=== PATIENT | female | born 1995 | race Caucasian/White ===

== ENCOUNTER 2019-10-15 11:33 | Outpatient (CLI) | payer SELFPAY ==
--- NOTE | 2019-10-15 11:46 | XR_ITS ---
WS: [id number] Lumbar spine with flexion, extension, and neutral lateral, 10/15/2019 Clinical Data: INTERVERTEBRAL DISC DISPLACEMENT-LUMBAR REGION Comparison: None. Findings: No compression fractures or subluxation is seen. No disc space narrowing is seen. No limitation of motion or subluxation is seen. There is an incidental unfused apophysis at the anterior inferior aspect of the L3 vertebral body. XR/XR lumbar spine f/e only [id number] Impression: Negative lateral lumbar spine.
== END 2019-10-15 11:34 | disposition home or self-care (01) ==
LOC: RAD 11:39
PROVIDERS: Family Provider Nurse Practitioner Family; PCP Nurse Practitioner Family; Visit Provider Nurse Practitioner Family
DX: M51.26 Other intervertebral disc displacement, lumbar region (principal)
CPT/HCPCS: 72120

== ENCOUNTER 2019-10-23 09:06 | Outpatient (CLI) | payer SELFPAY ==
--- NOTE | 2019-10-23 09:00 | XRR_ITS ---
PROCEDURE INFORMATION: Exam: XR Abdomen, 1 View Exam date and time: 10/23/2019 9:14 AM Age: 23 years old Clinical indication: Abdominal pain; Additional info: Kidney stone TECHNIQUE: Imaging protocol: XR of the abdomen. Views: Frontal supine view of the abdomen. 1 View. COMPARISON: CT Abdomen/Pelvis Renal [id number] 09/28/2019 8:41 AM FINDINGS: Gastrointestinal tract: The bowel gas pattern is nonspecific. Air filled large bowel including distal rectal gas. Organs: 4 mm calcification overlies the upper pole of the right kidney. Bones/joints: Unremarkable. XR/XR KUB [id number] IMPRESSION: 1. The bowel gas pattern is nonspecific. Air filled large bowel including distal rectal gas. 2. 4 mm calcification overlies the upper pole of the right kidney.
== END 2019-10-23 09:07 | disposition home or self-care (01) ==
LOC: RAD 09:10
PROVIDERS: Family Provider Nurse Practitioner Family; PCP Nurse Practitioner Family; Visit Provider Urology
DX: N20.0 Calculus of kidney (principal)
CPT/HCPCS: 74018; 81001

== ENCOUNTER 2019-11-02 11:26 | Outpatient (CLI) | payer SELFPAY ==
--- NOTE | 2019-11-02 11:38 | MR_ITS ---
WS: [id number] MRI LUMBAR SPINE NONCONTRAST HISTORY: INTERVERTEBRAL DISC DISPLACEMENT, LUMBAR REGION COMPARISON: Prior CT 09/28/2019. TECHNIQUE: Sagittal and axial multisequence imaging is submitted. As seen on a prior CT examination there are 5 nonrib-bearing lumbar vertebral bodies. This numbering pattern will be utilized today. There may only be 11th thoracic type vertebral bodies. Numbering pattern of 5 nonrib-bearing lumbar vertebral bodies utilized. Normal posterior lumbar alignment. There are small Schmorl's nodes from T12 through L4. Again noted i s the unfused apophysis along the inferior anterior endplate of L3. No marrow edema or fracture. Conus terminates normally at mid L2. L1-L2: Normal. L2-L3: Normal. L3-L4: Small amount of fluid in the facet joints. No stenosis. L4-L5: Small central disc protrusion with mild contact on the ventral thecal sac. No displacement of the nerve roots. Very minimal narrowing of the subarticular recesses. No foraminal or central stenosi s. Small amount of fluid in the facet joints. L5-S1: Moderate-sized central disc protrusion extends cephalad to the disc space. Disc extrusion exte nds over length of 9.4 mm and transversely by 7.4 mm. Very slight encroachment and narrowing of the L EFT subarticular recess. There is still a small amount of CSF surrounding the nerve roots. Visualized retroperitoneum is negative. MR/MR lumbar spine wo con* [id number] IMPRESSION: 1. Moderate-sized central and LEFT paracentral disc extrusion at L5-S1. Minima l encroachment upon the subarticular recesses and proximal LEFT foramen. 2. Small central disc protrusion at L4-5 without stenosis.
--- NOTE | 2019-11-02 13:00 | XR_ITS ---
WS: [id number] LATERAL LUMBAR SPINE: 3 view. Lateral radiographs are performed in upright neutral, flexion and extension to the patient's toleranc e. HISTORY: herniated disc COMPARISON: 10/15/2019 Unfused apophysis along the inferior anterior L3 endplate is similar to the prior study. Very minimal anterior wedging of the L3 vertebral body. No fractures are identified. Posterior alignment is kolton l. With flexion and extension no instability is identified. XR/XR lumbar spine f/e only [id number] IMPRESSION: 1. No lumbar spine instability. 2. L3 unfused apophysis.
== END 2019-11-02 11:27 | disposition home or self-care (01) ==
PROVIDERS: Family Provider Nurse Practitioner Family; PCP Nurse Practitioner Family; Visit Provider Nurse Practitioner Family
DX: M51.26 Other intervertebral disc displacement, lumbar region (principal); M48.061 Spinal stenosis, lumbar region without neurogenic claudication
CPT/HCPCS: 72120; 72148

== ENCOUNTER 2020-06-05 12:47 | Outpatient (CLI) | payer SELFPAY ==
--- NOTE | 2020-06-05 12:45 | XR_ITS ---
WS: [id number] KUB, 06/05/2020 Clinical Data: stones Comparison: KUB, 10/23/2019. Findings: There is a 0.4 cm calcification overlying the midportion of the right kidney. No abnormal intraabdominal masses are seen. There is no dilatated small bowel or evidence of obstruct ion. There is a large amount of fecal material throughout the colon. XR/XR KUB [id number] Impression: No change in 0.4 cm calcification overlying the right kidney.
== END 2020-06-05 12:48 | disposition home or self-care (01) ==
LOC: RAD 12:49
PROVIDERS: PCP Nurse Practitioner Family; Visit Provider Nurse Practitioner Family
DX: N20.0 Calculus of kidney (principal)
CPT/HCPCS: 74018; 81001

== ENCOUNTER → 2021-01-26 11:51 | Outpatient (BNVA) | payer BC, SELFPAY | PROVIDERS: PCP Nurse Practitioner Family; Visit Provider Family Medicine | DX: E11.65 Type 2 diabetes mellitus with hyperglycemia (principal) | CPT/HCPCS: 83036; 84443 ==

== ENCOUNTER 2022-03-30 08:21 | Outpatient (CLI) | payer BC, SELFPAY ==
--- NOTE | 2022-03-30 08:45 | US_ITS ---
WS: [id number] ULTRASOUND RIGHT BREAST, limited HISTORY: Mastodynia; pain AND SKIN DIMPLING COMPARISON: 07/16/2015 TECHNIQUE: 2-D and Doppler. Ultrasound performed in the area of concern as indicated by the patient from 7-12 o'clock and towards the axillary tail. No masses or shadowing identified. No skin thickening or distortion. Benign lymph nodes towards the a xillary tail. US/US breast RT limited* [id number] IMPRESSION: BI-RADS: 1-Negative FOLLOW-UP: See Report No abnormality limited RIGHT breast ultrasound identified.
== END 2022-03-30 08:22 | disposition home or self-care (01) ==
LOC: RAD 08:22
PROVIDERS: PCP Nurse Practitioner; Visit Provider Nurse Practitioner
DX: N64.4 Mastodynia (principal)
CPT/HCPCS: 76642

== ENCOUNTER 2022-11-24 08:56 | Day surgery (SDC) | payer BC, MEDICAID, SELFPAY ==
[2022-11-22 10:03] VITALS: BMI 34.3
[2022-11-24 09:14] VITALS: BP 114/70; PULSE 60; RESP 18; TEMP 36.1; O2SAT 96
[2022-11-24] MEDS: sodium chloride 0.9% 1,000 ML 30 ML IV (09:21)
[2022-11-24 09:26] LABS: OR HCG Qualitative Urine Negative (Negative)
--- NOTE | 2022-11-24 09:27 | ANES.PREANE2 ---
Pre-Anesthetic Assessment Height/Weight: Height 1.5 m Weight 77.111 kg Temp Pulse Resp BP Pulse Ox O2 Del Method 97 F L 60 18 114/70 96 11/24/22 09:14 11/24/22 09:14 11/24/22 09:14 11/24/22 09:14 11/24/22 09:14 11/24/22 09:14 Preop Diagnosis: GERD Operation Date: 11/24/22 10:30 Proposed Procedures p [id number] egd, R10.9(Not Applicable) - Germain Anderson DO Familial anesthetic complications: none Was Beta Orlando taken within 24 hours: N/A Was Clonidine taken within 24 hours: N/A Last intake: Intake Last Liquid Date 11/23/22 Last Liquid Time 22:30 Last Solid Date 11/23/22 Last Solid Time 18:00 Last Intake: 22:30 Social No alcohol and No tobacco Exam alert, oriented x 3, clear to auscultation bilaterally and regular rate & rhythm Airway Submandibular: within normal limits Cervical ROM: within normal limits Mallampati: Class I Dentition: full Pulmonary None reported CV/HEM None reported None reported Hepatic None reported GI Gastroesophageal Reflux Disease Metabolic None reported Musc/skel Lower Back Pain Neuropsych None reported Anesthetic Plan ASA status: 1 Anesthesia: MAC Medications/Allergies Home Medications Medication Instructions Recorded Confirmed Last Taken Type omeprazole 20 mg capsule,delayed 20 mg PO DAILY 11/11/22 11/22/22 11/23/22 History release Allergies Allergy/AdvReac Type Severity Reaction Status Date / Time No Known Allergies Allergy Verified 11/11/22 13:49 Current Medications Generic Name Dose Route Start Last Admin Trade Name Freq PRN Reason Stop Dose Admin Sodium Chloride 1,000 mls @ 30 mls/hr 11/23/22 14:30 11/24/22 09:21 Sodium Chloride 0.9% IV 11/24/22 14:29 30 mls/hr .Q24H SHARON Administration PFSH Anesthesia Medical History Dental infection Displacement of lumbar intervertebral disc Otitis media Right renal stone Surgical History S/P section Status post ovarian cystectomy Family History Grandmother Diabetes Breast cancer Bone cancer Grandfather Pancreatic cancer Social History Smoking and tobacco status: never smoked Alcohol intake: never Household members: spouse and children Marital status: Current occupational status: unemployed 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
--- NOTE | 2022-11-24 11:02 | W.PM.OPSUD ---
Surgery/Procedure H&P Update DATE OF PROCEDURE: November 24, 2022 DATE H&P PERFORMED: 11/11/22 H&P UPDATE INFORMATION: I have reviewed H&P completed within last 30 days, I have examined patient prior to procedure and No changes to prior documentation PREOP DIAGNOSIS: GERD PLANNED PROCEDURE: Operation Date: 11/24/22 10:30 Proposed Procedures p [id number] egd, R10.9(Not Applicable) - Germain Anderson, DO
[2022-11-24 11:30] VITALS: BP 99/60; PULSE 67; RESP 16; TEMP 36.3; O2SAT 98
[2022-11-24 11:40] VITALS: BP 99/62; PULSE 63; RESP 16; O2SAT 98
--- NOTE | 2022-11-24 13:58 | ANE.PACU2 ---
Inpatient post-anesthesia follow up: Airway intact: Yes Vital signs: Temperature 97.4 F Pulse Rate 63 Respiratory Rate 16 Blood Pressure 99/62 Pulse Oximetry 98 Oxygen Delivery Me thod Room Air Oxygen Flow Rate 2 Fraction of Inspir ed Oxygen Hydration adequate: Yes Nausea and vomiting: No Pain level: 1 Mental status: Baseline
== END 2022-11-24 12:04 | disposition home or self-care (01) ==
PROVIDERS: Anesthesiology; Visit Provider Surgery
PROC: 0DJ08ZZ Inspection of Upper Intestinal Tract, Via Natural or Artificial Opening Endoscopic (ICD-10-PCS; CPT 43235; principal; 2022-11-24 10:30)
DX: K21.9 Gastro-esophageal reflux disease without esophagitis (principal)
CPT/HCPCS: 43239; 81025; 84703; 88305; J2704; J7030

== ENCOUNTER 2022-12-02 09:57 | Outpatient (CLI) | payer BC, MEDICAID, SELFPAY ==
--- NOTE | 2022-12-02 10:00 | NM_ITS ---
WS: [id number] NUCLEAR MEDICINE HIDA SCAN CLINICAL INFORMATION: abdominal pain TECHNIQUE: Following intravenous administration of 7.4 mCi of technetium 99m mebrofenin, images of th e abdomen were obtained over the course of 60 minutes. Next, gallbladder ejection fraction was determ ined by obtaining preprandial and one-hour postprandial images of the gallbladder following oral yamilet stion of Ensure. COMPARISON: None. FINDINGS: Normal hepatic uptake at 5 minutes. Normal hepatic excretion. Gallbladder is visualized by 30 minutes . No evidence of acute cholecystitis. Gallbladder ejection fraction 80% within normal limits. No evidence of chronic cholecystitis. Normal common bile duct and small bowel activity. NM/NM hepatobiliary w phar* [id number] IMPRESSION: 1. No evidence of acute cholecystitis. 2. Gallbladder ejection fraction 80% within normal limits. No evidence of general internal medicine physician viridiana cholecystitis.
== END 2022-12-02 09:58 | disposition home or self-care (01) ==
LOC: RAD 09:59
PROVIDERS: PCP Nurse Practitioner Family; Visit Provider Surgery
DX: R10.9 Unspecified abdominal pain (principal)
CPT/HCPCS: 78227; A9537

== ENCOUNTER 2023-01-06 05:29 | Day surgery (SDC) | payer BC, MEDICAID, SELFPAY ==
[2023-01-05 12:45] VITALS: BMI 33.3
[2023-01-06] VITALS (12 sets, daily range): BP systolic 104–130; BP diastolic 53–77; PULSE 53–77; RESP 16–21; TEMP 36.3–36.7; O2SAT 97–100
[2023-01-06 06:01] LABS: OR HCG Qualitative Urine Negative (Negative)
[2023-01-06] MEDS: sodium chloride 0.9% 1,000 ML 30 ML IV ×2 (06:15→09:21)
--- NOTE | 2023-01-06 06:58 | ANES.PREANE2 ---
Pre-Anesthetic Assessment Height/Weight: Height 1.5 m Weight 74.843 kg Temp Pulse Resp BP Pulse Ox O2 Del Method 97.9 F 53 L 16 114/68 99 01/06/23 05:55 01/06/23 05:55 01/06/23 05:55 01/06/23 05:55 01/06/23 05:55 01/06/23 05:55 Preop Diagnosis: Right upper quadrant syndrome Operation Date: 01/06/23 07:00 Proposed Procedures p lap yvonne [id number], k82.8(Not Applicable) - Germain Anderson DO Familial anesthetic complications: None Was Beta Orlando taken within 24 hours: N/A Was Clonidine taken within 24 hours: N/A Last intake: Intake Last Liquid Date 01/05/23 Last Liquid Time 20:00 Last Solid Date 01/05/23 Last Solid Time 18:30 Social No alcohol and No tobacco Exam alert, oriented x 3, clear to auscultation bilaterally and regular rate & rhythm Airway Mallampati: Class I Dentition: full GI Gastroesophageal Reflux Disease Anesthetic Plan ASA status: 2 Anesthesia: General Risk of > 500 ml blood loss (7ml/kg in children): No Medications/Allergies Home Medications Medication Instructions Recorded Confirmed Last Taken Type omeprazole 20 mg capsule,delayed 20 mg PO DAILY 11/11/22 01/06/23 01/05/23 History release Allergies Allergy/AdvReac Type Severity Reaction Status Date / Time No Known Allergies Allergy Verified 01/06/23 06:17 Current Medications Generic Name Dose Route Start Last Admin Trade Name Freq PRN Reason Stop Dose Admin Sodium Chloride 1,000 mls @ 30 mls/hr 01/06/23 05:45 01/06/23 06:15 Sodium Chloride 0.9% IV 01/07/23 05:44 30 mls/hr .Q24H SHARON Administration PFSH Anesthesia Medical History Dental infection Displacement of lumbar intervertebral disc Otitis media Right renal stone Surgical History S/P section Status post ovarian cystectomy Family History Grandmother Diabetes Breast cancer Bone cancer Grandfather Pancreatic cancer Social History Smoking and tobacco status: never smoked Alcohol intake: never Household members: spouse and children Marital status: Current occupational status: unemployed 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
--- NOTE | 2023-01-06 07:32 | W.PM.OPSUD ---
Surgery/Procedure H&P Update DATE OF PROCEDURE: January 06, 2023 DATE H&P PERFORMED: 12/07/22 H&P UPDATE INFORMATION: I have reviewed H&P completed within last 30 days, I have examined patient prior to procedure and No changes to prior documentation PREOP DIAGNOSIS: Right upper quadrant syndrome PLANNED PROCEDURE: Operation Date: 01/06/23 07:00 Proposed Procedures p lap yvonne [id number], k82.8(Not Applicable) - Germain Anderson DO
[2023-01-06] MEDS: ceFAZolin 2,000 MG in sodium chloride 0.9% (plus) 50 ML 100 MG IV (07:38)
[2023-01-06] MEDS: lidocaine-epi 2% 20 mL INJ INJECTION (08:07)
--- NOTE | 2023-01-06 08:21 | P.OP_ITS ---
Operative Report Date of procedure: January 06, 2023 Pre-op diagnosis: Preop Diagnosis Right upper quadrant syndrome Post-op diagnosis: same Procedure done: Laparoscopic cholecystectomy Implants: Surgicel Specimens removed/disposition: Gallbladder Surgeon: Dr. Germain Anderson DO Anesthesia: General Estimated blood loss (mL): 5 Complications: None apparent Brief History: This is a very pleasant 27-year-old female who was diagnosed with right upper quadrant syndrome. Laparoscopic cholecystectomy was indicated. The risk and benefits were explained and documented. Procedure: Patient was wheeled into the operative room and placed on the OR table in a supine position. Abdomen was inspected prepped and draped in usual sterile fashion. Time-out was performed and all present were in agreement. A 15 blade scalp was used to make a stab incision in the left upper quadrant and intra- abdominal insufflation was achieved using a Veress needle. After localizing the tissue incisions were made and a 5 millimeter trocar was placed into the umbilicus as well as 2 in the right upper quadrant. A 12 millimeter trocar was placed in the epigastrium. Gallbladder was grasped and elevated. The triangle of Calot was carefully dissected using blunt dissection and electrocautery until the triangle of Calot clearly identified. The cystic duct was clipped proximally and double clipped distally. The duct was then ligated proximally. The cystic artery was doubly clipped and ligated. The gallbladder was then removed from the liver bed using electrocautery. The gallbladder was removed from the abdomen using an Endo-Catch bag through the epigastric incision. The liver bed was inspected and there was a small amount of bleeding near the cystic artery. A piece of Surgicel was placed over this and hemostasis was noted. The abdomen was irrigated and suctioned. All ports removed. Skin was washed and dried. Incisions were closed with 4-0 Monocryl in a subcuticular interrupted fashion. Skin glue was applied. Patient tolerated the procedure well.
[2023-01-06] MEDS: HYDROmorphone 1 mg/mL INJ 1 mL 0.25 MG IVP (08:55)
[2023-01-06] MEDS: HYDROmorphone 1 mg/mL INJ 1 mL 0.5 MG IVP (09:06)
[2023-01-06] MEDS: HYDROcodone-acetaminophen 5-325 mg Tablet 1 TAB PO (09:43)
--- NOTE | 2023-01-06 13:37 | ANE.PACU2 ---
Inpatient post-anesthesia follow up: Airway intact: Yes Vital signs: Temperature 98.1 F Pulse Rate 58 Respiratory Rate 17 Blood Pressure 104/77 Pulse Oximetry 100 Oxygen Delivery Me thod Room Air Oxygen Flow Rate Fraction of Inspir ed Oxygen Hydration adequate: Yes Nausea and vomiting: No Pain level: 1 Mental status: Baseline
== END 2023-01-06 10:25 | disposition home or self-care (01) ==
PROVIDERS: PCP Nurse Practitioner Family; Visit Provider Surgery
PROC: 0FT44ZZ Resection of Gallbladder, Percutaneous Endoscopic Approach (ICD-10-PCS; CPT 47562; principal; 2023-01-06 07:00)
DX: K81.1 Chronic cholecystitis (principal); K21.9 Gastro-esophageal reflux disease without esophagitis
CPT/HCPCS: 47562; 81025; 84703; 88304; J0690; J1100; J1170; J2405; J2704; J2710; J3010; J3490; J7030; J7040

== ENCOUNTER 2023-01-27 11:05 | Day surgery (SDC) | payer BC, MEDICAID, SELFPAY ==
[2023-01-26 11:33] VITALS: BMI 33.3
[2023-01-27] VITALS (9 sets, daily range): BP systolic 109–124; BP diastolic 57–75; PULSE 53–77; RESP 16–18; TEMP 36.1–36.6; O2SAT 95–100
--- NOTE | 2023-01-27 11:10 | W.PM.OPSUD ---
Surgery/Procedure H&P Update DATE OF PROCEDURE: January 27, 2023 DATE H&P PERFORMED: 01/18/23 H&P UPDATE INFORMATION: I have reviewed H&P completed within last 30 days, I have examined patient prior to procedure and No changes to prior documentation PLANNED PROCEDURE: Operation Date: 01/27/23 12:30 Proposed Procedures p [id number] lap umblical hernia repair wiht mesh K42.9(Not Applicable) - Germain Anderson,
[2023-01-27 11:33] LABS: OR HCG Qualitative Urine Negative (Negative)
--- NOTE | 2023-01-27 12:06 | ANES.PREANE2 ---
Pre-Anesthetic Assessment Height/Weight: Height 1.5 m Weight 74.843 kg Temp Pulse Resp BP Pulse Ox O2 Del Method 97.5 F L 53 L 18 111/70 99 Room Air 01/27/23 11:32 01/27/23 11:32 01/27/23 11:32 01/27/23 11:32 01/27/23 11:32 01/27/23 11:32 Preop Diagnosis: Umbilical hernia Operation Date: 01/27/23 12:30 Proposed Procedures p [id number] lap umblical hernia repair wiht mesh K42.9(Not Applicable) - Germain Anderson DO Familial anesthetic complications: None Was Beta Orlando taken within 24 hours: N/A Was Clonidine taken within 24 hours: N/A Last intake: Intake Last Liquid Date 01/26/23 Last Liquid Time 23:30 Last Solid Date 01/26/23 Last Solid Time 19:00 Social No alcohol and No tobacco Exam alert, oriented x 3, clear to auscultation bilaterally and regular rate & rhythm Airway Submandibular: within normal limits Cervical ROM: within normal limits Mallampati: Class II Dentition: chipped History/ROS No significant history except as noted and No significant complaints Pulmonary None reported CV/HEM None reported Kidney stones Hepatic None reported GI Umbilical hernia Metabolic None reported Musc/skel Osteoarthritis/DJD Neuropsych Seizure (During in 2012. No issues since) Anesthetic Plan ASA status: 2 Anesthesia: Anesthesia Evaluation and General Risk of > 500 ml blood loss (7ml/kg in children): No Medications/Allergies Home Medications Medication Instructions Recorded Confirmed Last Taken Type hydrocodone 5 mg-acetaminophen 325 1 tab PO Q6H PRN pain #20 tabs 01/06/23 01/26/23 Unknown Rx mg tablet emtricitabine 200 mg-tenofovir 1 tab PO DAILY 01/26/23 01/27/23 01/26/23 History disoproxil fumarate 300 mg tablet Allergies Allergy/AdvReac Type Severity Reaction Status Date / Time No Known Allergies Allergy Verified 01/18/23 13:25 PFSH Anesthesia Medical History Dental infection Displacement of lumbar intervertebral disc Otitis media Right renal stone Surgical History (Updated 01/18/23 @ 13:55 by Germain Anderson DO) History of laparoscopic cholecystectomy S/P section Status post ovarian cystectomy Family History Grandmother Diabetes Breast cancer Bone cancer Grandfather Pancreatic cancer Social History Smoking and tobacco status: never smoked Alcohol intake: never Substance/Drug Use: never Household members: spouse and children Marital status: Current occupational status: unemployed 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
[2023-01-27] MEDS: sodium chloride 0.9% 1,000 ML 30 ML IV (12:33)
[2023-01-27] MEDS: ceFAZolin 2,000 MG in sodium chloride 0.9% (plus) 50 ML 100 MG IV (12:34)
[2023-01-27] MEDS: lidocaine-epi 2% 20 mL INJ 10 ML INJECTION (13:04)
--- NOTE | 2023-01-27 13:29 | PM.OP ---
Operative Report Date of procedure: January 27, 2023 Pre-op diagnosis: Preop Diagnosis Umbilical hernia Post-op diagnosis: same Procedure done: Laparoscopic repair of umbilical hernia with mesh Implants: 6 inch Ventralight mesh Specimens removed/disposition: Hernia sac Surgeon: Dr. Germain Anderson DO Anesthesia: General Estimated blood loss (mL): 5 Complications: None apparent Brief History: Is a very pleasant 27-year-old female with an umbilical hernia. Laparoscopic repair with mesh was indicated. The risks and benefits were explained and documented. Procedure: Patient was wheeled into the operative room and placed on the OR table in a supine position. Abdomen was inspected prepped and draped in usual sterile fashion. Time-out was performed and all present were in agreement. A 15 blade scalp was used to make a 5 millimeter incision left upper quadrant. A Veress needle was placed into the incision and intra-abdominal insufflation was brought to 15 millimeters of mercury. A 12 millimeter trocar was placed into the left lower quadrant. The energy but device was then used to cut out the hernia sac. A 6 inch ventral light mesh was placed into the abdomen and brought up through the umbilicus using an the Silvio-Chelsey. The mesh was then tacked in place in a double crown fashion. The skeleton of the mesh was removed via the left lower quadrant. The hernia sac was then removed from the abdomen via the left lower quadrant. The left lower quadrant port site was closed with an 0 Vicryl suture in a Silvio-Chelsey in a [id number] fashion. Incisions were closed with 4 O Vicryl in a subcuticular interrupted fashion. Skin glue was applied. Patient tolerated the procedure well.
--- NOTE | 2023-01-27 15:30 | ANE.PACU2 ---
Inpatient post-anesthesia follow up: Airway intact: Yes Vital signs: Temperature 97.8 F Pulse Rate 64 Respiratory Rate 16 Blood Pressure 120/57 Pulse Oximetry 98 Oxygen Delivery Me thod Room Air Oxygen Flow Rate 6 Fraction of Inspir ed Oxygen Hydration adequate: Yes Nausea and vomiting: No Pain level: 3 Mental status: Baseline
== END 2023-01-27 15:20 | disposition home or self-care (01) ==
PROVIDERS: Anesthesiology; PCP Nurse Practitioner Family; Visit Provider Surgery
PROC: 0WQF4ZZ Repair Abdominal Wall, Percutaneous Endoscopic Approach (ICD-10-PCS; CPT 49591; principal; 2023-01-27 12:20)
DX: K42.9 Umbilical hernia without obstruction or gangrene (principal)
CPT/HCPCS: 49591; 81025; 84703; 88302; J0131; J0690; J1100; J1170; J1200; J1885; J2250; J2405; J2704; J2710; J3010; J3490; J7030

== ENCOUNTER → 2023-09-19 10:43 | Outpatient (BNVA) | payer BC, SELFPAY | PROVIDERS: PCP Nurse Practitioner Family; Visit Provider Nurse Practitioner Family | DX: Z00.00 Encounter for general adult medical examination without abnormal findings (principal); R73.9 Hyperglycemia, unspecified; R53.83 Other fatigue | CPT/HCPCS: 80053; 80061; 81003; 82306; 83036; 84443; 85025 ==

== ENCOUNTER → 2024-04-20 16:04 | Outpatient (BNVA) | payer BC, SELFPAY | PROVIDERS: PCP Nurse Practitioner Family; Visit Provider Nurse Practitioner Family | DX: N39.0 Urinary tract infection, site not specified (principal) | CPT/HCPCS: 81000 ==

== ENCOUNTER → 2024-04-27 16:51 | Outpatient (BNVA) | payer BC, SELFPAY | PROVIDERS: PCP Nurse Practitioner Family; Visit Provider Nurse Practitioner Family | DX: N30.01 Acute cystitis with hematuria (principal); N20.0 Calculus of kidney | CPT/HCPCS: 81000 ==

== ENCOUNTER → 2024-05-01 12:01 | Outpatient (BNVA) | payer BC, SELFPAY | PROVIDERS: PCP Nurse Practitioner Family; Visit Provider Nurse Practitioner Family | DX: R07.9 Chest pain, unspecified (principal); R10.9 Unspecified abdominal pain; N20.0 Calculus of kidney; N30.01 Acute cystitis with hematuria | CPT/HCPCS: 74018; 80053; 81003; 85025 ==

== ENCOUNTER → 2024-05-02 11:33 | Outpatient (BNVA) | payer BC, MEDICAID, SELFPAY | PROVIDERS: PCP Nurse Practitioner Family; Visit Provider Nurse Practitioner Family | DX: R74.8 Abnormal levels of other serum enzymes (principal); Z80.0 Family history of malignant neoplasm of digestive organs | CPT/HCPCS: 82150; 83690; 85651; 86140 ==

== ENCOUNTER 2024-05-04 07:41 | Outpatient (CLI) | payer BC, MEDICAID, SELFPAY ==
--- NOTE | 2024-05-04 07:45 | US_ITS ---
WS: [id number] ULTRASOUND ABDOMEN CLINICAL INFORMATION: R74.8 - Abnormal levels of other serum enzymes FINDINGS: Liver Size: Normal. Craniocaudal length: 13.6 cm. Echogenicity: Normal. Surface nodularity: None. Mass (size and location): None. Bile ducts Intrahepatic ducts: Normal. Common bile duct diameter: 0.5 cm. Gallbladder Cholecystectomy Pancreas Normal as visualized. Spleen Incidental splenic granulomas. Splenomegaly: None. Craniocaudal length: 10.1 cm. Right kidney: Normal. Hydronephrosis: None. Size: 8.0 cm x 3.9 cm x 3.3 cm Left kidney: Normal. Hydronephrosis: None. Size: 9.4 cm x 3.6 cm x 3.5 cm. Abdominal aorta and IVC Visualized portions are normal. Ascites: None. US/US abdomen complete* [id number] IMPRESSION: 1. Cholecystectomy. 2. RIGHT renal parenchymal calculus measuring 5 mm unchanged since the prior 2019 3. Normal liver. 4. Incidental splenic granulomas. 5. No hydronephrosis in either kidney.
== END 2024-05-04 07:42 | disposition home or self-care (01) ==
LOC: RAD 07:42
PROVIDERS: PCP Nurse Practitioner Family; Visit Provider Nurse Practitioner Family
DX: R74.8 Abnormal levels of other serum enzymes (principal); N20.0 Calculus of kidney; D73.89 Other diseases of spleen; Z90.49 Acquired absence of other specified parts of digestive tract
CPT/HCPCS: 76700

== ENCOUNTER → 2024-05-21 12:30 | Outpatient (BNVA) | payer BC, MEDICAID, SELFPAY | PROVIDERS: PCP Nurse Practitioner Family; Visit Provider Nurse Practitioner Family | DX: M10.9 Gout, unspecified (principal); M19.90 Unspecified osteoarthritis, unspecified site | CPT/HCPCS: 84550; 86038; 86431 ==

== ENCOUNTER → 2024-05-29 11:18 | Outpatient (BNVA) | payer BC, MEDICAID, SELFPAY | PROVIDERS: PCP Nurse Practitioner Family; Visit Provider Nurse Practitioner Family | DX: M1A.9XX0 Chronic gout, unspecified, without tophus (tophi) (principal); M61.9 Calcification and ossification of muscle, unspecified; N30.01 Acute cystitis with hematuria | CPT/HCPCS: 73610; 81003 ==

== ENCOUNTER → 2024-12-25 09:11 | Outpatient (BNVA) | payer BC, MEDICAID, SELFPAY | PROVIDERS: PCP Nurse Practitioner Family; Visit Provider Nurse Practitioner Family | DX: S93.401A Sprain of unspecified ligament of right ankle, initial encounter (principal); S93.601A Unspecified sprain of right foot, initial encounter; X58.XXXA Exposure to other specified factors, initial encounter; M77.31 Calcaneal spur, right foot | CPT/HCPCS: 73610; 73630 ==